=== PATIENT | male | born 1985 | race American Indian/Alaskan Native ===

== ENCOUNTER 2020-09-05 21:26 | Emergency (ER) | payer SELFPAY ==
[2020-09-05 21:43] VITALS: BP 139/84
[2020-09-05 22:31] LABS: Bilirubin,Urine NEG (Negative); Blood,Urine NEG (Negative); Color,Urine Yellow (Yellow); Mucus,Urine 3+ /HPF; Urobilinogen,Urine < 2.0 mg/dL (<2.0); WBC,Urine < 1.0 /HPF (0.0-6.0)
--- NOTE | 2020-09-06 00:05 | Ultrasound Report ---
ULTRASOUND SCROTUM INDICATION / CLINICAL INFORMATION: left testicular pain. COMPARISON: None available. FINDINGS -- RIGHT: TESTIS: Size = 3.9 x 1.8 x 2.4 cm. - Appearance: No significant abnormality. - Cyst / Mass: None. - Color Doppler Flow: No significant abnormality. EPIDIDYMIS: No significant abnormality. HYDROCELE: Small. VARICOCELE: None demonstrated. FINDINGS -- LEFT: TESTIS: Size = 4.5 x 1.9 x 2.9 cm. - Appearance: No significant abnormality. - Cyst / Mass: None. - Color Doppler Flow: No significant abnormality. EPIDIDYMIS: No significant abnormality. HYDROCELE: Small. VARICOCELE: None demonstrated. ADDITIONAL FINDINGS: None. IMPRESSION: 1. Small bilateral hydroceles; otherwise, no significant sonographic abnormality. Signer Name: Kristin Lemons MD Signed: 09/06/2020 12:00 AM Workstation Name: [id number]
--- NOTE | 2020-09-06 00:28 | Emergency Department Report ---
ED Male HPI - General Chief complaint: Urogenital-Male Stated complaint: GROIN PAIN Source: patient Mode of arrival: Ambulatory Limitations: No Limitations - History of Present Illness Initial comments: Patient is a 35-year-old -B[place] male with no past medical history presents to the ED with complaint of acute onset persistent left testicular pain intermittently for the last 5 days. 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 Patient states that he is not currently sexually active because his girlfriend is . Patient states that the pain in the left testicle radiates to the groin and suprapubic area. Patient denies dysuria, traumatic injury, hematuria, heavy lifting, penile discharge, urinary frequency and urgency, low back pain, abdominal pain, chest pain or shortness of breath, fever and chills, nausea and vomiting or diarrhea. MD Complaint: testicle pain (LEFT), groin pain (Bilateral) -: Sudden, days(s) (5) Location: left testicle, right inguinal region, left inguinal region Radiation: none Severity: moderate Severity scale (0 -10): 4 Quality: aching, dull Consistency: constant Improves with: none Worsens with: none denies other symptoms. denies: discharge, swelling, mass, rash, urinary retention, dysuria, fever, nausea/vomiting, incontinence, other - Related Data Sexually active: Yes Previous Rx's Medication Instructions Recorded Last Taken Type Naproxen 500 mg PO Q12H PRN #24 tablet 09/06/20 Unknown Rx Allergies Allergy/AdvReac Type Severity Reaction Status Date / Time No Known Allergies Allergy Unverified 09/05/20 21:46 ED Review of Systems ROS: Stated complaint: GROIN PAIN Other details as noted in HPI Constitutional: denies: chills, fever Eyes: denies: eye pain, eye discharge, vision change ENT: denies: ear pain, throat pain Respiratory: denies: cough, shortness of breath, wheezing Cardiovascular: denies: chest pain, palpitations Endocrine: no symptoms reported Gastrointestinal: denies: abdominal pain, nausea, diarrhea Genitourinary: testicular pain (Left testicular pain), other (Bilateral inguinal pain). denies: urgency, dysuria Musculoskeletal: denies: back pain, joint swelling, arthralgia Skin: denies: rash, lesions Neurological: denies: headache, weakness, paresthesias Psychiatric: denies: anxiety, depression Hematological/Lymphatic: denies: easy bleeding, easy bruising ED Past Medical Hx - Past Medical History Previous Medical History?: No - Surgical History Past Surgical History?: Yes Additional Surgical History: Cataract - Social History Smoking Status: Current Some Day Smoker Substance Use Type: Alcohol - Medications Home Medications: Home Medications Medication Instructions Recorded Confirmed Last Taken Type Naproxen 500 mg PO Q12H PRN #24 tablet 09/06/20 Unknown Rx ED Physical Exam - General Limitations: No Limitations General appearance: alert, in no apparent distress - Head Head exam: Present: atraumatic, normocephalic, normal inspection - Eye Eye exam: Present: normal appearance, PERRL, EOMI Pupils: Present: normal accommodation - ENT ENT exam: Present: normal exam, normal orophraynx, mucous membranes moist, TM's normal bilaterally, normal external ear exam - Neck Neck exam: Present: normal inspection, full ROM - Respiratory Respiratory exam: Present: normal lung sounds bilaterally. Absent: respiratory distress, wheezes, rales, rhonchi, stridor, chest wall tenderness, accessory muscle use, decreased breath sounds - Cardiovascular Cardiovascular Exam: Present: regular rate, normal rhythm, normal heart sounds. Absent: systolic murmur, diastolic murmur, rubs, gallop - GI/Abdominal GI/Abdominal exam: Present: soft, normal bowel sounds. Absent: tenderness, guarding, rebound, hyperactive bowel sounds, hypoactive bowel sounds, organomegaly, bruit - exam: Present: normal inspection External exam: Present: normal external exam, other (Male ER renal dialysis technician kip junior present; normal exam) - Extremities Exam Extremities exam: Present: normal inspection - Back Exam Back exam: Present: normal inspection, full ROM. Absent: tenderness, CVA tenderness (R), CVA tenderness (L), muscle spasm, paraspinal tenderness, vertebral tenderness, rash noted - Neurological Exam Neurological exam: Present: alert, oriented X3, CN II-XII intact, normal gait - Psychiatric Psychiatric exam: Present: normal affect, normal mood, anxious - Skin Skin exam: Present: warm, dry, intact, normal color. Absent: rash ED Course Vital Signs 09/05/20 21:38 Temperature 98.9 F Pulse Rate 62 Respiratory 16 Rate Blood Pressure 139/84 O2 Sat by Pulse 99 Oximetry ED Medical Decision Making - Radiology Data Radiology results: report reviewed, image reviewed Findings [facility] [address] [place] [address] Ultrasound Report Signed Patient: FAISAL MERCEDES MR#: [id number] : 1985 Acct:[id number] Age/Sex: 35 / M ADM Date: 09/05/20 Loc: ED Attending Dr: Ordering Physician: DESIRE SONG Date of Service: 09/05/20 Procedure(s): US testicular doppler comp Accession Number(s): [id number] cc: DESIRE SONG ULTRASOUND SCROTUM INDICATION / CLINICAL INFORMATION: left testicular pain. COMPARISON: None available. FINDINGS -- RIGHT: TESTIS: Size = 3.9 x 1.8 x 2.4 cm. - Appearance: No significant abnormality. - Cyst / Mass: None. - Color Doppler Flow: No significant abnormality. EPIDIDYMIS: No significant abnormality. HYDROCELE: Small. VARICOCELE: None demonstrated. FINDINGS -- LEFT: TESTIS: Size = 4.5 x 1.9 x 2.9 cm. - Appearance: No significant abnormality. - Cyst / Mass: None. - Color Doppler Flow: No significant abnormality. EPIDIDYMIS: No significant abnormality. HYDROCELE: Small. VARICOCELE: None demonstrated. ADDITIONAL FINDINGS: None. IMPRESSION: 1. Small bilateral hydroceles; otherwise, no significant sonographic abnormality. Signer Name: Kristin Lemons MD Signed: 09/06/2020 12:00 AM Workstation Name: [id number] Transcribed By: DT Dictated By: Darwin Lemons MD Electronically Authenticated By: Darwin Lemons MD Signed Date/Time: 09/06/20 0000 DD/ 2359 TD/TT: - Medical Decision Making This is a 35-year-old -B[place] male with no past medical history presents to the ED with complaint of acute onset persistent left testicular pain intermittently for the last 5 days. 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 Patient states that he is not currently sexually active because his girlfriend is . Patient states that the pain in the left testicle radiates to the groin and suprapubic area. In the ED, patient is alert and oriented x3 and is not in any distress. Urinalysis is unremarkable with no hematuria or any sign of infection. Testicular ultrasound showed small bilateral hydroceles; otherwise, no significant sonographic abnormality. Patient symptoms are likely due to muscle strain of the inguinal muscles due to long stretch of driving and sitting in the truck. Patient was therefore discharged home on pain medications and advised to follow-up with his primary care physician in 5 to 7 days for reevaluation or return to the ED immediately if symptoms get worse. - Differential Diagnosis Testicular torsion; epididymitis; UTI; STD; muscle strain; muscle spasm; Critical care attestation.: If time is entered above; I have spent that time in minutes in the direct care of this critically ill patient, excluding procedure time. ED Disposition Clinical Impression: Pain in left testicle Inguinal muscle strain Qualifiers: Encounter type: initial encounter Qualified Code(s): S39.013A - Strain of muscle, fascia and tendon of pelvis, initial encounter Disposition: TO HOME OR SELFCARE Is pt being admited?: No Does the pt Need Aspirin: No Condition: Stable Instructions: Testicular Self-Exam, [id number] Additional Instructions: The testicular ultrasound shows no acute testicular torsion or any acute abnormalities. Urinalysis is unremarkable. Therefore take medications as needed for pain, drink plenty of fluids and follow-up with your primary care physician in 5 to 7 days for reevaluation. Return to the ED immediately if symptoms get worse. Prescriptions: Naproxen 500 mg PO Q12H PRN #24 tablet PRN Reason: Pain , Severe (7-10) Referrals: [facility] [Provider Group] - 3-5 Days Time of Disposition: 00:27 Print Language: MALDIVIAN
== END 2020-09-06 00:40 | disposition home or self-care (01) ==
LOC: ED 21:26
DX: S39.013A Strain of muscle, fascia and tendon of pelvis, initial encounter (principal); N50.812 Left testicular pain; F17.200 Nicotine dependence, unspecified, uncomplicated; Z79.899 Other long term (current) drug therapy; X58.XXXA Exposure to other specified factors, initial encounter; Y93.89 Activity, other specified; Y92.89 Other specified places as the place of occurrence of the external cause; Y99.8 Other external cause status
CPT/HCPCS: 81001; 93975; 99283